=== PATIENT | male | born 1950 | race Caucasian/White ===

== ENCOUNTER 2018-04-10 19:43 | Emergency (ER) | payer MEDICARE, OTHER ==
[~2018-04-10] VITALS: Ht 180.3 cm; Wt 115.7 kg
[2018-04-10] MEDS ORDERED: LANTUS100 UNIT/M SUBQ (19:54)
[2018-04-10] MEDS ORDERED: NORVASC10 MG PO (19:54)
[2018-04-10] MEDS ORDERED: LASIX 80 MG TAB80 MG PO (19:55)
[2018-04-10] MEDS ORDERED: ELIPHOS667 MG PO (19:55)
[2018-04-10] MEDS ORDERED: PRINIVIL20 M1 PO (19:55)
[2018-04-10] MEDS ORDERED: CARVEDILOL12.5 MG PO (19:55)
[2018-04-10] MEDS ORDERED: CELEXA20 MG PO (19:56)
[2018-04-10] MEDS ORDERED: VITAMIN D22000 UNIT PO (19:56)
[2018-04-10] MEDS ORDERED: FINASTERIDE5 MG PO (19:56)
[2018-04-10] MEDS ORDERED: TYLENOL EXTRA500 MG PO (19:57)
[2018-04-10 20:03] LABS: URINE BILIRUBIN NEGATIVE (Negative); URINE BLOOD 2+ (Negative); URINE CLARITY CLEAR; URINE COLOR YELLOW; URINE GLUCOSE-RANDOM 2+ (Negative); URINE KETONES NEGATIVE (Negative); URINE LEUKOCYTES-REFLEX TRACE (Negative); URINE NITRITE-REFLEX NEGATIVE (Negative); URINE PROTEIN 2+ (Negative); URINE UROBILINOGEN 0.2 E.U./dl (0.2-1.0)
[2018-04-10 20:19] LABS: BACTERIA-REFLEX 1-9 Few /HPF (None Seen); CASTS None Seen /LPF (None Seen); CRYSTALS None Seen /LPF (None Seen); SQUAMOUS 0-3 Few /LPF (0-3); URINE RBC 0-2 Rare /HPF (0-2); URINE WBC-REFLEX 6-15 Few /HPF (0-5)
[2018-04-10 20:56] VITALS: BP 172/86
== END 2018-04-10 20:57 | disposition home or self-care (01) ==
LOC: EDSEX 19:43 → M.ERS 19:43
PROVIDERS: Nurse Practitioner Family
DX: T83.89XA Other specified complication of genitourinary prosthetic devices, implants and grafts, initial encounter (principal); E11.9 Type 2 diabetes mellitus without complications; I10 Essential (primary) hypertension; Z88.1 Allergy status to other antibiotic agents; Z88.5 Allergy status to narcotic agent; Z79.4 Long term (current) use of insulin; Z99.2 Dependence on renal dialysis; Y84.8 Other medical procedures as the cause of abnormal reaction of the patient, or of later complication, without mention of misadventure at the time of the procedure; Y92.89 Other specified places as the place of occurrence of the external cause

== ENCOUNTER → 2018-04-11 | Day surgery (SDC) | payer MEDICARE, OTHER ==
[~2018-04-11] VITALS: Ht 180.3 cm; Wt 117.9 kg
[~2018-04-11] MED LIST: CARVEDILOL12.5 MG PO; CELEXA20 MG PO; ELIPHOS667 MG PO; FINASTERIDE5 MG PO; LANTUS100 UNIT/M SUBQ; LASIX 80 MG TAB80 MG PO; NORVASC10 MG PO; PRINIVIL20 M1 PO; TYLENOL EXTRA500 MG PO; VITAMIN D22000 UNIT PO
[2018-04-11 15:37] VITALS: BP 167/94
[2018-04-11 15:41] LABS: HEMATOCRIT 30.5 % (42.0-52.0); HEMOGLOBIN 10.3 gm/dL (14.0-18.0); MCH 30.3 pg (26.0-34.0); MCHC 33.8 g/dL (28.0-37.0); MCV 89.5 fL (80.0-100.0); MPV 7.5 fl. (7.2-11.1); RBC 3.4 mil/uL (4.50-6.00); RDW-CV 14.4 % (10.5-14.5); WBC 9.1 thou/uL (4.0-11.0)
[2018-04-11 15:49] LABS: CREATININE 7.4 mg/dL (0.6-1.3); POTASSIUM 4.4 mmol/L (3.5-5.1)
[2018-04-11 15:51] LABS: APTT 25.7 Seconds (25.0-31.3); PROTIME 10.2 Seconds (9.20-11.50)
== END | disposition home or self-care (01) ==
LOC: M.INT 13:51
PROVIDERS: Radiology Diagnostic Radiology
DX: N99.528 Other complication of incontinent external stoma of urinary tract (principal); I10 Essential (primary) hypertension; E11.9 Type 2 diabetes mellitus without complications; N13.30 Unspecified hydronephrosis